=== PATIENT | female | born 1940 | race Caucasian/White ===

== ENCOUNTER → 2020-09-19 07:45 | Outpatient (CLI) | payer MEDICARE, MEDICAID, SELFPAY ==
[2020-09-19 13:54] LABS: Basophils % 0.2 % (0.1-2.0); Eosinophils # 0.5 K/mm3 (0.0-0.4); Eosinophils % 7.5 % (0.1-12.0); Hematocrit 27.4 % (37.0-47.0); Hemoglobin 8.3 g/dL (12.2-16.2); Lymphocytes # 1.6 K/mm3 (0.7-4.5); Lymphocytes % 26.5 % (10-50); Mean Corpuscular HGB Conc 30.2 g/dL (31.8-35.4); Mean Corpuscular Hemoglobin 24.5 pg (27.0-31.2); Mean Corpuscular Volume 81.3 fl (81-99); Mean Platelet Volume 8.1 fl (7.4-10.4); Monocytes # 0.6 K/mm3 (0.1-1.0); Monocytes % 9.1 % (1.7-9.3); Neutrophils # 3.5 K/mm3 (1.8-7.8); Neutrophils % 56.6 % (37.0-80.0); Platelet Count 378 K/mm3 (142-424); Red Blood Count 3.37 M/mm3 (4.20-5.40); Red Cell Distribution Width 19.9 % (11.5-17.5); White Blood Count 6.1 K/mm3 (4.8-10.8)
== END ==
PROVIDERS: Visit Provider Internal Medicine Adolescent Medicine
DX: I10 Essential (primary) hypertension (principal)
CPT/HCPCS: 36415; 85025

== ENCOUNTER → 2020-10-05 18:08 | Outpatient (CLI) | payer MEDICARE, MEDICAID, SELFPAY ==
[2020-10-05 18:10] LABS: Microscopic, Urine URINE MICROSCOPIC (MICROSCOPIC)
[2020-10-05 18:33] LABS: Appearance,Urine CLOUDY (Clear); Bilirubin,Urine Negative (Negative); Blood, Urine 2+ (Negative); Color,Urine YELLOW (Yellow); Glucose,Urine (UA) Negative (Negative); Ketones,Urine Negative (Negative); Leukocyte Esterase,Urine 2+ (Negative); Nitrate,Urine POSITIVE (Negative); PH,Urine 6.5 (5.0-8.5); Protein,Urine 1+ (Negative); Specific Gravity, Urine 1.015 (1.005-1.030); Urobilinogen,Urine 0.2 EU/dl (0.2)
[2020-10-05 19:03] LABS: Bacteria,Urine 3+ /lpf; RBC,Urine TNTC #/hpf (0-3); WBC,Urine TNTC #/hpf (0-3)
== END ==
PROVIDERS: Visit Provider Internal Medicine Adolescent Medicine
DX: R30.0 Dysuria (principal)
CPT/HCPCS: 81001; 87086; 87088; 87186

== ENCOUNTER → 2020-10-13 08:14 | Outpatient (CLI) | payer MEDICARE, MEDICAID, SELFPAY ==
[2020-10-13 13:55] LABS: Thyroid Stimulating Hormone 0.97 uIU/mL (0.465-4.68)
== END ==
PROVIDERS: Visit Provider Internal Medicine Adolescent Medicine
DX: E03.9 Hypothyroidism, unspecified (principal)
CPT/HCPCS: 36415; 84443

== ENCOUNTER → 2020-10-20 07:38 | Outpatient (CLI) | payer MEDICARE, MEDICAID, SELFPAY ==
[2020-10-20 13:46] LABS: Eosinophils # 0.4 K/mm3 (0.0-0.4); Lymphocytes # 1.5 K/mm3 (0.7-4.5); Red Blood Count 3.26 M/mm3 (4.20-5.40)
[2020-10-20 13:53] LABS: Basophils # 0.1 K/mm3 (0-0.2); Eosinophils % 6.3 % (0.1-12.0); Hematocrit 25.9 % (37.0-47.0); Hemoglobin 8.2 g/dL (12.2-16.2); Lymphocytes % 25.8 % (10-50); Mean Corpuscular HGB Conc 31.4 g/dL (31.8-35.4); Mean Corpuscular Volume 79.6 fl (81-99); Mean Platelet Volume 8.6 fl (7.4-10.4); Monocytes # 0.6 K/mm3 (0.1-1.0); Monocytes % 9.3 % (1.7-9.3); Neutrophils # 3.4 K/mm3 (1.8-7.8); Neutrophils % 57.6 % (37.0-80.0); Platelet Count 324 K/mm3 (142-424); Red Cell Distribution Width 18.5 % (11.5-17.5); White Blood Count 5.9 K/mm3 (4.8-10.8)
== END ==
PROVIDERS: Visit Provider Internal Medicine Adolescent Medicine
DX: D64.9 Anemia, unspecified (principal)
CPT/HCPCS: 36415; 85025

== ENCOUNTER → 2020-11-13 15:35 | Outpatient (CLI) | payer MEDICARE, MEDICAID, SELFPAY ==
[2020-11-13 15:45] LABS: Microscopic, Urine URINE MICROSCOPIC (MICROSCOPIC)
[2020-11-13 15:48] LABS: Basophils % 0.2 % (0.1-2.0); Eosinophils # 0.3 K/mm3 (0.0-0.4); Eosinophils % 2.5 % (0.1-12.0); Hematocrit 29.3 % (37.0-47.0); Hemoglobin 9.1 g/dL (12.2-16.2); Lymphocytes # 1.4 K/mm3 (0.7-4.5); Lymphocytes % 13.7 % (10-50); Mean Corpuscular HGB Conc 31.1 g/dL (31.8-35.4); Mean Corpuscular Hemoglobin 24.5 pg (27.0-31.2); Mean Corpuscular Volume 78.9 fl (81-99); Mean Platelet Volume 8.1 fl (7.4-10.4); Monocytes # 0.8 K/mm3 (0.1-1.0); Monocytes % 7.3 % (1.7-9.3); Neutrophils # 7.9 K/mm3 (1.8-7.8); Neutrophils % 76.4 % (37.0-80.0); Platelet Count 410 K/mm3 (142-424); Red Blood Count 3.72 M/mm3 (4.20-5.40); Red Cell Distribution Width 19.1 % (11.5-17.5); White Blood Count 10.3 K/mm3 (4.8-10.8)
[2020-11-13 15:59] LABS: Appearance,Urine TURBID (Clear); Bilirubin,Urine Negative (Negative); Blood, Urine 3+ (Negative); Color,Urine YELLOW (Yellow); Glucose,Urine (UA) Negative (Negative); Ketones,Urine Negative (Negative); Leukocyte Esterase,Urine 3+ (Negative); Nitrate,Urine Negative (Negative); Protein,Urine 1+ (Negative); Specific Gravity, Urine 1.015 (1.005-1.030); Urobilinogen,Urine 0.2 EU/dl (0.2)
[2020-11-13 16:04] LABS: Chloride 99 mmol/L (98-107); Potassium 3.1 mmoL/L (3.5-5.1); Sodium 143 mmol/L (136-145)
[2020-11-13 16:06] LABS: WBC,Urine TNTC #/hpf (0-3)
[2020-11-13 16:07] LABS: Anion Gap 12.1 mEq/L (5-15); Blood Urea Nitrogen 44 mg/dl (7-17); Carbon Dioxide 35 mmol/L (22.0-30.0); Estimated Glomerular Filt Rate 29 ml/min (>60); GFR (African American) 35 ML/MIN (>60); Glucose 87 mg/dl (74-100)
[2020-11-13 16:11] LABS: Calcium 13.8 mg/dl (8.4-10.2)
[2020-11-14 16:07] LABS: 25-OH Vitamin D, Total 31.5 ng/mL (30-100)
== END ==
LOC: LAB.DROPOF 15:36 → HMH.JM 11-15 10:14
PROVIDERS: Nurse Practitioner Family; Visit Provider Internal Medicine Adolescent Medicine
DX: I10 Essential (primary) hypertension (principal); D50.8 Other iron deficiency anemias; E03.9 Hypothyroidism, unspecified; E55.9 Vitamin D deficiency, unspecified; R82.90 Unspecified abnormal findings in urine
CPT/HCPCS: 80048; 81001; 82306; 84443; 85025; 87086; 87088; 87186

== ENCOUNTER → 2020-11-14 14:17 | Outpatient (CLI) | payer MEDICARE, MEDICAID, SELFPAY ==
[2020-11-14 14:37] LABS: Chloride 105 mmol/L (98-107); Sodium 144 mmol/L (136-145)
[2020-11-14 14:40] LABS: Alanine Aminotransferase 24 U/L (12-78); Albumin Level 2.6 g/dl (3.5-5.0); Albumin/Globulin Ratio 0.7 (1.1-1.8); Alkaline Phosphatase 127 U/L (38-126); Anion Gap 9.9 mEq/L (5-15); Aspartate Amino Transferase 51 U/L (14-36); Bilirubin,Total 0.5 mg/dl (0.2-1.3); Blood Urea Nitrogen 40 mg/dl (7-17); Carbon Dioxide 32 mmol/L (22.0-30.0); Estimated Glomerular Filt Rate 29 ml/min (>60); GFR (African American) 35 ML/MIN (>60); Globulin 3.5 g/dL (1.3-3.2); Total Protein,Serum 6.1 g/dl (6.3-8.2)
[2020-11-14 14:41] LABS: Glucose 95 mg/dl (74-100)
[2020-11-14 14:46] LABS: Calcium 12.9 mg/dl (8.4-10.2); Potassium 2.9 mmoL/L (3.5-5.1)
== END ==
PROVIDERS: Visit Provider Internal Medicine Adolescent Medicine
DX: E87.6 Hypokalemia (principal)
CPT/HCPCS: 80053

== ENCOUNTER → 2020-11-16 17:43 | Outpatient (CLI) | payer MEDICARE, MEDICAID, SELFPAY ==
[2020-11-16 19:16] LABS: Basophils % 0.2 % (0.1-2.0); Eosinophils # 0.1 K/mm3 (0.0-0.4); Eosinophils % 0.7 % (0.1-12.0); Hematocrit 28.6 % (37.0-47.0); Hemoglobin 8.6 g/dL (12.2-16.2); Lymphocytes # 1.7 K/mm3 (0.7-4.5); Lymphocytes % 16.7 % (10-50); Mean Corpuscular HGB Conc 30.2 g/dL (31.8-35.4); Mean Corpuscular Hemoglobin 24.4 pg (27.0-31.2); Mean Platelet Volume 8.6 fl (7.4-10.4); Monocytes # 0.7 K/mm3 (0.1-1.0); Monocytes % 7.1 % (1.7-9.3); Neutrophils # 7.7 K/mm3 (1.8-7.8); Neutrophils % 75.3 % (37.0-80.0); Platelet Count 376 K/mm3 (142-424); Red Blood Count 3.53 M/mm3 (4.20-5.40); Red Cell Distribution Width 19.1 % (11.5-17.5); White Blood Count 10.2 K/mm3 (4.8-10.8)
[2020-11-16 19:42] LABS: Chloride 107 mmol/L (98-107); Sodium 148 mmol/L (136-145)
[2020-11-16 19:45] LABS: Alanine Aminotransferase 26 U/L (12-78); Albumin Level 2.8 g/dl (3.5-5.0); Albumin/Globulin Ratio 0.7 (1.1-1.8); Alkaline Phosphatase 137 U/L (38-126); Aspartate Amino Transferase 34 U/L (14-36); Bilirubin,Total 0.4 mg/dl (0.2-1.3); Blood Urea Nitrogen 44 mg/dl (7-17); Carbon Dioxide 31 mmol/L (22.0-30.0); Estimated Glomerular Filt Rate 25 ml/min (>60); GFR (African American) 31 ML/MIN (>60); Globulin 3.8 g/dL (1.3-3.2); Glucose 87 mg/dl (74-100); Total Protein,Serum 6.6 g/dl (6.3-8.2)
[2020-11-16 20:14] LABS: Calcium 13.3 mg/dl (8.4-10.2)
== END ==
PROVIDERS: Visit Provider Internal Medicine Adolescent Medicine
DX: R79.89 Other specified abnormal findings of blood chemistry (principal)
CPT/HCPCS: 80053; 85025

== ENCOUNTER → 2020-11-19 12:32 | Outpatient (CLI) | payer MEDICARE, MEDICAID, SELFPAY ==
[2020-11-19 13:21] LABS: Chloride 114 mmol/L (98-107); Potassium 3.1 mmoL/L (3.5-5.1)
[2020-11-19 13:24] LABS: Alanine Aminotransferase 41 U/L (12-78); Albumin Level 2.5 g/dl (3.5-5.0); Albumin/Globulin Ratio 0.7 (1.1-1.8); Alkaline Phosphatase 138 U/L (38-126); Anion Gap 11.1 mEq/L (5-15); Aspartate Amino Transferase 117 U/L (14-36); Bilirubin,Total 0.6 mg/dl (0.2-1.3); Blood Urea Nitrogen 40 mg/dl (7-17); Carbon Dioxide 29 mmol/L (22.0-30.0); Estimated Glomerular Filt Rate 24 ml/min (>60); GFR (African American) 29 ML/MIN (>60); Globulin 3.6 g/dL (1.3-3.2); Glucose 87 mg/dl (74-100); Total Protein,Serum 6.1 g/dl (6.3-8.2)
[2020-11-19 14:50] LABS: Calcium 12.5 mg/dl (8.4-10.2); Sodium 151 mmol/L (136-145)
== END ==
PROVIDERS: Visit Provider Internal Medicine Adolescent Medicine
DX: J18.9 Pneumonia, unspecified organism (principal)
CPT/HCPCS: 80053

== ENCOUNTER 2020-11-19 16:20 | Inpatient (IN) | payer MEDICARE, MEDICAID, SELFPAY ==
[2020-11-19] VITALS (8 sets, daily range): BP systolic 152–199; BP diastolic 13–103; PULSE 100–116; RESP 22–30; TEMP 36.9–38.1; O2SAT 91–99; BMI 24.4
--- NOTE | 2020-11-19 16:30 | XR_ITS ---
PROCEDURE INFORMATION: Exam: XR Chest Exam date and time: 11/19/2020 4:30 PM Age: 80 years old Clinical indication: Fever; Prior surgery; Surgery type: Loop recorder TECHNIQUE: Imaging protocol: XR of the chest. Views: 1 view. COMPARISON: CT ABDOMEN PELVIS WO CON 11/19/2020 4:48 PM FINDINGS: Tubes, catheters and devices: Devices project over the heart. Lungs: Right apical opacities vague. Left basilar opacity is mild. Pleural spaces: Unremarkable. No pleural effusion. No pneumothorax. Heart/Mediastinum: Unremarkable. No cardiomegaly. Diaphragm: Left hemidiaphragm elevation noted. Bones/joints: Moderate bilateral shoulder arthritis. Organs: Calcifications project over the left upper quadrant compatible with renal stone seen on comparison CT. IMPRESSION: 1. Left basilar opacity most compatible with atelectasis, but an early infiltrate is possible. 2. Right apical opacity is nonspecific. Infection and tumor are possible. Follow-up PA and lateral could be performed for low clinical suspicion, or CT for high suspicion.
--- NOTE | 2020-11-19 16:31 | CT_ITS ---
PROCEDURE INFORMATION: Exam: CT Abdomen And Pelvis Without Contrast Exam date and time: 11/19/2020 4:31 PM Age: 80 years old Clinical indication: Abdominal tenderness TECHNIQUE: Imaging protocol: Computed tomography of the abdomen and pelvis without contrast. Radiation optimization: All CT scans at this facility use at least one of these dose optimization techniques: automated exposure control; mA and/or kV adjustment per patient size (includes targeted exams where dose is matched to clinical indication); or iterative reconstruction. COMPARISON: No relevant prior studies available. FINDINGS: Lungs: Mild bibasilar atelectasis. Heart: Postsurgical changes seen in heart. Heart appears mildly enlarged. Liver: Normal. No mass. Gallbladder and bile ducts: Normal. No calcified stones. No ductal dilation. Pancreas: Normal. No ductal dilation. Spleen: Normal. No splenomegaly. Adrenal glands: Normal. No mass. Kidneys and ureters: No stones in the right kidney. No hydronephrosis or hydroureter on the right. On the left, there is a large nonobstructing calyceal stone measuring about 16 x 15 mm toward the upper pole. Additional nonobstructing calyceal stones are seen. There is also a 22 mm stone in the left renal pelvis. No left hydronephrosis. No left ureteral stones. Stomach and bowel: A 10 cm rectal stool ball is noted. Appendix: No evidence of appendicitis. Intraperitoneal space: Unremarkable. No free air. No significant fluid collection. Vasculature: Unremarkable. No abdominal aortic aneurysm. Lymph nodes: Unremarkable. No enlarged lymph nodes. Urinary bladder: Unremarkable as visualized. Reproductive: The uterus is bulky and contains at least 1 calcified mass. Changes are most likely due to fibroids, but further characterization with ultrasound is suggested as adnexal lesion cannot be excluded on this study. Bones/joints: Unremarkable. No acute fracture. Soft tissues: Air in the right subcutaneous buttock tissues may be due to injection. Clinical correlation recommended. Other findings: Motion limits exam. IMPRESSION: 1. A 10 cm rectal stool ball is present likely due to fecal retention. This could be the cause of the patient's symptoms. 2. The uterus is enlarged and bulky with probable fibroids. An adnexal mass cannot be excluded on this study. Recommend correlation with recent pelvic ultrasound. 3. Indeterminate right greater than left adrenal nodularity. Comparison with remote priors if available is recommended as well as correlation for any personal history of cancer. Otherwise, adrenal protocol MRI or CT could be performed. 4. Cholelithiasis without CT evidence of cholecystitis.
--- NOTE | 2020-11-19 16:31 | CT_ITS ---
PROCEDURE INFORMATION: Exam: CT Head Without Contrast Exam date and time: 11/19/2020 4:31 PM Age: 80 years old Clinical indication: Altered mental status/memory loss; Prior surgery; Additional info: AMS TECHNIQUE: Imaging protocol: Computed tomography of the head without contrast. Radiation optimization: All CT scans at this facility use at least one of these dose optimization techniques: automated exposure control; mA and/or kV adjustment per patient size (includes targeted exams where dose is matched to clinical indication); or iterative reconstruction. COMPARISON: No relevant prior studies available. FINDINGS: Brain: Chronic encephalomalacia in the right cerebellum. There is an extra-axial mass likely arising from the meninges at the skull base anterolateral to brainstem, see axial series 2, images 17 -20, correlate for recurrent meningioma versus other extra-axial neoplasm or surgical change. This measures approximately 2.5 x 1.3 cm on series 2, image 19, this causes no compression of the brainstem. There is prominent generalized cerebral cortical atrophy/volume loss, which appears greater in the right hemisphere. There are some areas of chronic appearing cortical encephalomalacia at the right parietal convexity, likely old infarcts, and extensive white matter disease in both hemispheres, right greater than left. No acute intracranial hemorrhage. No brain edema/swelling. Cerebral ventricles: Ventriculomegaly; moderately dilated right lateral ventricle, probably ex vacuo change due to right hemisphere encephalomalacia and atrophy. Mildly dilated left lateral ventricle. No significant hydrocephalus. Paranasal sinuses: There is mild right ethmoid sinus mucosal thickening, and there is some fluid within the posterior right ethmoid sinus with air-fluid level series 3 images 19-20. There are some tiny mucous retention cysts or polyps in the maxillary sinuses of a few mm. Mastoid air cells: There are some opacified right mastoid air cells, which may be chronic postop change, versus active mastoiditis. No prior studies are available to compare. Left mastoid is unremarkable. Orbital cavity: No acute findings in the orbits, as visualized. Correlate for previous lens replacement surgery. Vasculature: Some calcified atherosclerotic plaques in the intracranial carotid arteries. Bones/joints: Right occipital craniotomy. No acute skull fracture. No lytic lesions. Soft tissues: There are no soft tissue masses or fluid collections. Surgical clips at the right occipital craniotomy. IMPRESSION: 1. There is an extra-axial solid-appearing mass of 2.5 x 1.3 cm in the posterior fossa on the right, located anterolateral to the brainstem, which is suspicious for residual or recurrent meningioma, correlate with the previous surgical history. No prior images or reports are available to compare. This causes no compression of the brainstem. 2. Right occipital craniotomy, encephalomalacia in the right occipital lobe. 3. No acute intracranial hemorrhage. 4. No signs of acute infarct. 5. Chronic ischemic changes in the right parietal convexity cortex, extensive white matter disease in both hemispheres right greater than left is likely chronic microvascular ischemic change. 6. Likely [id number] sinusitis, some fluid in the posterior right ethmoid sinus. 7. Right mastoid opacities may be chronic postsurgical change, versus mastoiditis. 8. Additional nonemergency and chronic findings as above.
--- NOTE | 2020-11-19 16:33 | HMH.EDGENADL ---
ED Disposition Clinical Impression: Healthcare-associated pneumonia, Hypernatremia, Hypokalemia, Hypercalcemia Altered mental status Qualifiers: Altered mental status type: somnolence Qualified Code(s): R40.0 - Somnolence Chronic kidney disease Qualifiers: Chronic kidney disease stage: unspecified stage Qualified Code(s): N18.9 - Chronic kidney disease, unspecified Anemia Qualifiers: Anemia type: unspecified type Qualified Code(s): D64.9 - Anemia, unspecified Sepsis Qualifiers: Sepsis type: sepsis due to unspecified organism Sepsis acute organ dysfunction status: without acute organ dysfunction Qualified Code(s): A41.9 - Sepsis, unspecified organism Disposition: Admitted As Inpatient Condition on Discharge: Serious - Critical Care Critical Care Time: No Attestation: On , the high probability of a clinically significant, sudden or life threatening deterioration of the following system(s) required my full and direct attention, intervention and personal management. The time I documented below is in addition to time spent performing reported procedures but includes the following listed in this critical care notation. Medical Decision Making - Elvis Inquiry Pt receiving controlled substance: No Vital Signs: 11/19/20 16:20 11/19/20 17:30 11/19/20 17:45 Temperature 100.6 F H Temperature Source Rectal Pulse Rate 112 H 105 H Pulse Rate [Left] 104 H Respiratory Rate 30 H 22 22 Blood Pressure 183/84 H 173/74 H Blood Pressure [Right Arm] 193/97 H Blood Pressure Mean [Right Arm] 129 Blood Pressure Source [Right Arm] Automatic Cuff 02 Sat by Pulse Oximetry 99 98 Oxygen Delivery Method Room Air - Lab Data Lab Results 11/19/20 16:25: WBC 11.9 H, RBC 3.32 L, Hgb 8.2 L, Hct 27.8 L, MCV 83.8, MCH 24.7 L, MCHC 29.4 L, RDW 19.2 H, Plt Count 320, MPV 8.2, Neut % (Auto) 79.9, Lymph % (Auto) 13.0, [place] % (Auto) 6.0, Eos % (Auto) 0.1, Baso % (Auto) 0.9, Neut # (Auto) 9.5 H, Lymph # (Auto) 1.6, [place] # (Auto) 0.7, Eos # (Auto) 0.0, Baso # (Auto) 0.1 11/19/20 16:25: Sodium 153 H*, Potassium 2.7 L*, Chloride 114 H, Carbon Dioxide 30, Anion Gap 11.7, BUN 38 H, Creatinine 2.20 H, Estimated Creat Clear 26, Estimated GFR 21 L, Est GFR ( Amer) 26 L, Glucose 95, Calcium 12.8 H*, Total Bilirubin 0.7, AST 115 H, ALT 47, Alkaline Phosphatase 139 H, Total Protein 7.1, Albumin 3.0 L D, Globulin 4.1 H, Albumin/Globulin Ratio 0.7 L 11/19/20 16:25: Lactate 1.0 11/19/20 16:25: SARS-CoV-2 (PCR) Not detected, Influenza A Untype (PCR) Not detected, Influenza Type B (PCR) Not detected 11/19/20 16:25: PTH Intact 43.6 11/19/20 17:18: Urine Color Yellow, Urine Appearance Clear, Urine pH 6.5, Ur Specific [place] 1.015, Urine Protein 1+, Urine Glucose (UA) Negative, Urine Ketones Negative, Urine Blood 1+, Urine Nitrate Negative, Urine Bilirubin Negative, Urine Urobilinogen 0.2, Ur Leukocyte Esterase Negative, Urine RBC 3-5, Urine WBC 3-5, Ur Squamous Epith Cells 3-5, Urine Bacteria None Result diagrams: 11/19/20 16:25 11/19/20 16:25 Orders (Tests/Meds): ED MEDICATIONS Generic Name Dose Route Start Last Admin Trade Name Freq PRN Reason Stop Dose Admin Levofloxacin/Dextrose 750 mg in 150 mls @ 100 mls/hr 11/19/20 18:30 Levofloxacin 750mg/150ml Premix IV 12/03/20 18:29 Q24H ASHA Cefepime HCl 2 gm/ Sodium 100 mls @ 100 mls/hr 11/19/20 18:30 11/19/20 18:47 Chloride IV 12/03/20 18:29 100 mls/hr Q12H ASHA Administration Potassium Chloride/Water 20 meq 11/19/20 17:02 Potassium Chloride 20meq/100ml Ivpb IV 11/19/20 17:03 ONCE ONE Discontinued Medications Generic Name Dose Route Start Last Admin Trade Name Freq PRN Reason Stop Dose Admin Acetaminophen 650 mg 11/19/20 17:25 11/19/20 17:34 Acetaminophen 650mg Suppository RC 11/19/20 17:26 650 mg ONCE ONE Administration Sodium Chloride 1,000 ml 11/19/20 17:01 11/19/20 17:07 Sodium Chloride 0.9% 1000ml Bag IV 11/19/20 17:
[2020-11-19 16:40] LABS: Coronavirus 19, PCR Not Detected (NotDetected); Influenza A, PCR Not Detected (NotDetected); Influenza B, PCR Not Detected (NotDetected)
[2020-11-19 16:44] LABS: Basophils # 0.1 K/mm3 (0-0.2); Basophils % 0.9 % (0.1-2.0); Eosinophils % 0.1 % (0.1-12.0); Hematocrit 27.8 % (37.0-47.0); Hemoglobin 8.2 g/dL (12.2-16.2); Lymphocytes # 1.6 K/mm3 (0.7-4.5); Mean Corpuscular HGB Conc 29.4 g/dL (31.8-35.4); Mean Corpuscular Hemoglobin 24.7 pg (27.0-31.2); Mean Corpuscular Volume 83.8 fl (81-99); Mean Platelet Volume 8.2 fl (7.4-10.4); Monocytes # 0.7 K/mm3 (0.1-1.0); Neutrophils # 9.5 K/mm3 (1.8-7.8); Neutrophils % 79.9 % (37.0-80.0); Platelet Count 320 K/mm3 (142-424); Red Blood Count 3.32 M/mm3 (4.20-5.40); Red Cell Distribution Width 19.2 % (11.5-17.5); White Blood Count 11.9 K/mm3 (4.8-10.8)
[2020-11-19 16:50] LABS: Alanine Aminotransferase 47 U/L (12-78); Albumin/Globulin Ratio 0.7 (1.1-1.8); Alkaline Phosphatase 139 U/L (38-126); Anion Gap 11.7 mEq/L (5-15); Aspartate Amino Transferase 115 U/L (14-36); Bilirubin,Total 0.7 mg/dl (0.2-1.3); Blood Urea Nitrogen 38 mg/dl (7-17); Carbon Dioxide 30 mmol/L (22.0-30.0); Chloride 114 mmol/L (98-107); Creatinine Clearance Estimated 26 mL/min (50-200); Estimated Glomerular Filt Rate 21 ml/min (>60); GFR (African American) 26 ML/MIN (>60); Globulin 4.1 g/dL (1.3-3.2); Glucose 95 mg/dl (74-100); Total Protein,Serum 7.1 g/dl (6.3-8.2)
[2020-11-19 16:57] LABS: Calcium 12.8 mg/dl (8.4-10.2); Potassium 2.7 mmoL/L (3.5-5.1); Sodium 153 mmol/L (136-145)
--- NOTE | 2020-11-19 17:00 | ECG_ITS ---
APPROVED REPORT Exam: Resting ECG HR:101 bpm ECG Measurements Heart Rate 101 AXES QRSd 78 QRS 2 QT 326 T -89 QTc 422 Conclusion Atrial fibrillation with rapid ventricular response Minimal voltage criteria for LVH, may be normal variant ST & T wave abnormality Abnormal ECG Electronically signed by : Dakota Vidal MD 11/20/2020 08:57:53
--- NOTE | 2020-11-19 17:08 | PC.NURSE ---
lab called with critical values NA 153 K 2.7 CA 12.8 MD aware.
[2020-11-19 17:20] LABS: Intact Parathyroid Hormone 43.6 pg/mL (7.5-53.5)
[2020-11-19 17:22] LABS: Microscopic, Urine URINE MICROSCOPIC (MICROSCOPIC)
[2020-11-19 17:28] LABS: Appearance,Urine CLEAR (Clear); Bilirubin,Urine Negative (Negative); Blood, Urine 1+ (Negative); Color,Urine YELLOW (Yellow); Glucose,Urine (UA) Negative (Negative); Ketones,Urine Negative (Negative); Leukocyte Esterase,Urine Negative (Negative); Nitrate,Urine Negative (Negative); PH,Urine 6.5 (5.0-8.5); Protein,Urine 1+ (Negative); Specific Gravity, Urine 1.015 (1.005-1.030); Urobilinogen,Urine 0.2 EU/dl (0.2)
--- NOTE | 2020-11-19 17:45 | PC.NURSE ---
patients daughter called, Jeremy SALAZAR) and I updated her on patient condition and plan of care.
--- NOTE | 2020-11-19 18:10 | PC.NURSE ---
Dr Min speaking to Dr Kurtz
--- NOTE | 2020-11-19 19:26 | PC.NURSE ---
called Kwan CHIN and updated RN on patient condition and that patient is going to be getting admitted.
--- NOTE | 2020-11-19 20:21 | PC.NURSE ---
patient up to floor via stretcher.
[2020-11-20] VITALS (7 sets, daily range): BP systolic 158–197; BP diastolic 96–98; PULSE 110–125; RESP 20–28; TEMP 37.7–39.1; O2SAT 90–95; BMI 25.4
[2020-11-20 07:39] LABS: Basophils % 0.1 % (0.1-2.0); Eosinophils % 0.3 % (0.1-12.0); Hematocrit 25.5 % (37.0-47.0); Hemoglobin 7.8 g/dL (12.2-16.2); Lymphocytes # 1.4 K/mm3 (0.7-4.5); Lymphocytes % 11.2 % (10-50); Mean Corpuscular HGB Conc 30.5 g/dL (31.8-35.4); Mean Corpuscular Hemoglobin 25.7 pg (27.0-31.2); Mean Corpuscular Volume 84.1 fl (81-99); Mean Platelet Volume 9.4 fl (7.4-10.4); Monocytes # 0.7 K/mm3 (0.1-1.0); Monocytes % 5.1 % (1.7-9.3); Neutrophils # 10.6 K/mm3 (1.8-7.8); Neutrophils % 83.3 % (37.0-80.0); Platelet Count 274 K/mm3 (142-424); Red Blood Count 3.03 M/mm3 (4.20-5.40); Red Cell Distribution Width 19.2 % (11.5-17.5); White Blood Count 12.7 K/mm3 (4.8-10.8)
[2020-11-20 07:43] LABS: Chloride 119 mmol/L (98-107); Potassium 3.2 mmoL/L (3.5-5.1)
[2020-11-20 07:46] LABS: Anion Gap 12.2 mEq/L (5-15); Blood Urea Nitrogen 38 mg/dl (7-17); Carbon Dioxide 26 mmol/L (22.0-30.0); Creatinine Clearance Estimated 22 mL/min (50-200); Estimated Glomerular Filt Rate 21 ml/min (>60); GFR (African American) 26 ML/MIN (>60); Glucose 97 mg/dl (74-100)
[2020-11-20 08:03] LABS: Sodium 154 mmol/L (136-145)
[2020-11-20 08:04] LABS: Calcium 12.5 mg/dl (8.4-10.2)
--- NOTE | 2020-11-20 08:48 | HMH.HP ---
*Admission Date: 11/19/20 *Chief complaint: Fever, mental status changes *History of present illness: 80-year-old white female, resident of [facility], who over the past couple of weeks has struggled with urinary tract infections, evidence of nursing acquired pneumonia and significant hypercalcemia with kidney injury. We have treated her at the long term with broad-spectrum IV antibiotics and IV fluids, work-up for hypercalcemia has included IV fluid administrations and PTH measurement-this is pending. Patient's status declined over the past 48 hours with increasingly obtunded status and fever, brought to the emergency department. Found to have evidence of nursing acquired pneumonia, had failed Invanz therapy. Had anemia, evidence of acute kidney injury and ongoing hypercalcemia and admitted to hospital for further therapy and evaluation. [facility] History I have reviewed the patient's past medical history: Yes Medical History: Reports:: Atrial Fibrillation, Hyperlipidemia, Hypertension Denies:: Diabetes Mellitus Type 1, Diabetes Mellitus Type 2 *Have you ever received a pneumonia vaccine?: No *Have you received a flu vaccine this season?: No Other Medical History: Reports: Arthritis, Hypothyroidism Laterality Cases: Left: Arthroscopy Hip - *Social History Smoking Status: Current some day smoker # Packs/Day (cigarettes): 1 Alcohol Intake: never *Occupational Status:: retired, disabled Housing: long term *Travel in the last 8 weeks: None Family Hx:: Unable to obtain Review of Systems - Review of Systems Review of systems:: pertinent systems reviewed and negative unless documented below Meds Home Medications Medication Instructions Recorded Confirmed Type Cholecalciferol (Vitamin D3) 50 mcg PO DAILY 11/19/20 11/20/20 History [Vitamin D3] Duloxetine HCl 60 mg PO DAILY 11/19/20 11/20/20 History Ertapenem Sodium [Invanz 1gm Vial] 1 gm PO DAILY 11/19/20 11/20/20 History Ezetimibe/Simvastatin 10 mg PO DAILY 11/19/20 11/20/20 History [Ezetimibe-Simvastatin 10-10 mg] Levothyroxine Sodium 125 mcg PO DAILY 11/19/20 11/20/20 History [Levothyroxine] Melatonin 6 mg PO HS 11/19/20 11/20/20 History Metoprolol Succinate [Metoprolol 50 mg PO DAILY 11/19/20 11/20/20 History Succinate 50mg Tablet*] Potassium Chloride 60 meq PO DAILY 11/19/20 11/20/20 History Tiotropium [place] [Spiriva 2 puff PO DAILY 11/19/20 11/19/20 History Respimat] Allergies Allergy/AdvReac Type Severity Reaction Status Date / Time No Known Allergies Allergy Verified 11/19/20 16:51 Exam Vital signs and Labs for Last 24 Hours: Temp Pulse Resp BP Pulse Ox 102.3 F H 125 H 20 197/97 H 95 11/20/20 08:00 11/20/20 08:00 11/20/20 08:00 11/20/20 08:00 11/20/20 08:00 Laboratory Results - last 24 hr 11/19/20 16:25: WBC 11.9 H, RBC 3.32 L, Hgb 8.2 L, Hct 27.8 L, MCV 83.8, MCH 24.7 L, MCHC 29.4 L, RDW 19.2 H, Plt Count 320, MPV 8.2, Neut % (Auto) 79.9, Lymph % (Auto) 13.0, [place] % (Auto) 6.0, Eos % (Auto) 0.1, Baso % (Auto) 0.9, Neut # (Auto) 9.5 H, Lymph # (Auto) 1.6, [place] # (Auto) 0.7, Eos # (Auto) 0.0, Baso # (Auto) 0.1 11/19/20 16:25: Sodium 153 H*, Potassium 2.7 L*, Chloride 114 H, Carbon Dioxide 30, Anion Gap 11.7, BUN 38 H, Creatinine 2.20 H, Estimated Creat Clear 26, Estimated GFR 21 L, Est GFR ( Amer) 26 L, Glucose 95, Calcium 12.8 H*, Total Bilirubin 0.7, AST 115 H, ALT 47, Alkaline Phosphatase 139 H, Total Protein 7.1, Albumin 3.0 L D, Globulin 4.1 H, Albumin/Globulin Ratio 0.7 L 11/19/20 16:25: Lactate 1.0 11/19/20 16:25: SARS-CoV-2 (PCR) Not detected, Influenza A Untype (PCR) Not detected, Influenza Type B (PCR) Not detected 11/19/20 16:25: PTH Intact 43.6 11/19/20 17:18: Urine Color Yellow, Urine Appearance Clear, Urine pH 6.5, Ur Specific [place] 1.015, Urine Protein 1+, Urine Glucose (UA) Negative, Urine Ketones Negative, Urine Blood 1+, Urine Nitrate Negative, Urine Bilirubin Negative, Urine
--- NOTE | 2020-11-20 09:01 | PC.NURSE ---
0803- spoke to ashley in the lab. verified name, and room number. Na-[id number] and Ca-12.5 0821- notified MD Vidal during rounds. NNO @ this time
--- NOTE | 2020-11-20 12:21 | P.CONPHA_ITS ---
[facility] Pharmacy VTE Monitoring - Patient Demographics Admission date: 11/19/20 Report Date: 11/20/20 Time: 12:22 Allergies/Adverse Reactions: Patient Allergies No Known Allergies Allergy (Verified 11/19/20 16:51) Height: 1.63 m Weight: 67.727 kg Patient Problems: Current Active Problems Healthcare-associated pneumonia (Acute) Altered mental status (Acute) Hypernatremia (Acute) Hypokalemia (Acute) Hypercalcemia (Acute) Chronic kidney disease (Acute) Anemia (Acute) Sepsis (Acute) - VTE Risk Labs: VTE Related Lab Results Hgb 7.8 g/dL (12.2-16.2) L 11/20/20 07:31 Hct 25.5 % (37.0-47.0) L 11/20/20 07:31 Plt Count 274 K/mm3 (142-424) 11/20/20 07:31 BUN 38 mg/dl (7-17) H 11/20/20 07:31 Creatinine 2.20 mg/dl (0.52-1.04) H 11/20/20 07:31 Estimated Creat Clear 22 mL/min (50-200) 11/20/20 07:31 VTE Score: 5 VTE Risk Level: Low Risk - Prophylaxis VTE Prophylaxis Ordered?: Yes Types of VTE Prophylaxis: TEDS Knee High Location of Applied Device: Bilateral Lower Extremeties
--- NOTE | 2020-11-20 12:58 | HMH.PHAINT ---
MEDICATION RECONCILIATION COMPLETED ON PATIENT USING MAR FROM [facility]. -ARIAN PIKE, TALHAD
--- NOTE | 2020-11-20 15:53 | PC.NURSE ---
Addendum entered by Sindy Harper RN 11/20/20 17:56: Pt has been febrile majority of this shift, when PRN tylenol not able to give-blankets removed, ice packs applied axillary and in the groin area Original Note: Pt has been a q2h turn this shift, q2h and PRN oral care has been given provided to pt as well this shift. Family has remained at bedside this shift. Per MD Vidal, pt is terminally ill and end-of-life visitation policies may be taken into effect. Expiratory rhonchi heard bilaterally t/o per auscultation. Hypoactive bowel sounds in all 4 quads, pt did x1 medium, dark brown/black stool this shift after enema administration. Cardenas cath draining cloudy, light yellow urine. No other acute changes or complaints at this time, will continue to monitor.
[2020-11-21] VITALS: PULSE 112; RESP 24; O2SAT 91
--- NOTE | 2020-11-21 00:03 | PC.NURSE ---
1999- family at bedside refused vital sign assessment at this time.
[2020-11-21 03:53] VITALS: PULSE 118; RESP 16; TEMP 37.3; O2SAT 92
[2020-11-21 05:06] VITALS: BMI 24.6
--- NOTE | 2020-11-21 05:14 | PC.NURSE ---
Pt. t/r per family request, staff makes offer q2h. Pt. had one small, tarry bm this shift. FC draining bright yellow urine, sediment noted. Morphine administered x1, effectiveness noted. Resting in bed with eyes closed at this time.
[2020-11-21 08:00] VITALS: BP 197/99; PULSE 109; RESP 19; TEMP 37.1; O2SAT 92
[2020-11-21 08:23] LABS: Chloride 122 mmol/L (98-107)
[2020-11-21 08:24] LABS: Basophils % 0.1 % (0.1-2.0); Eosinophils % 0.1 % (0.1-12.0); Hematocrit 23.9 % (37.0-47.0); Lymphocytes # 1.3 K/mm3 (0.7-4.5); Lymphocytes % 11.7 % (10-50); Mean Corpuscular HGB Conc 29.3 g/dL (31.8-35.4); Mean Corpuscular Hemoglobin 25.3 pg (27.0-31.2); Mean Corpuscular Volume 86.3 fl (81-99); Mean Platelet Volume 9.5 fl (7.4-10.4); Monocytes # 0.6 K/mm3 (0.1-1.0); Monocytes % 5.1 % (1.7-9.3); Neutrophils # 8.9 K/mm3 (1.8-7.8); Platelet Count 253 K/mm3 (142-424); Red Blood Count 2.77 M/mm3 (4.20-5.40); Red Cell Distribution Width 19.8 % (11.5-17.5); White Blood Count 10.7 K/mm3 (4.8-10.8)
[2020-11-21 08:26] LABS: Anion Gap 11.7 mEq/L (5-15); Blood Urea Nitrogen 42 mg/dl (7-17); Carbon Dioxide 26 mmol/L (22.0-30.0); Creatinine Clearance Estimated 22 mL/min (50-200); Estimated Glomerular Filt Rate 23 ml/min (>60); GFR (African American) 27 ML/MIN (>60); Glucose 92 mg/dl (74-100)
[2020-11-21 08:38] LABS: Potassium 2.7 mmoL/L (3.5-5.1); Sodium 157 mmol/L (136-145)
--- NOTE | 2020-11-21 08:57 | P.PN_ITS ---
Internal Medicine - PN: Subj *Date: 11/21/20 *Time: 08:57 Interval history: Patient has received a couple of doses of morphine overnight for pain and some agitation. Her daughters who are at bedside report that she has been very peaceful over the last 3 or 4 hours and has gotten some rest. They have multiple questions about her worsening status. Exam Vital signs and Labs for Last 24 Hours: Temp Pulse Resp BP Pulse Ox 98.8 F 109 H 19 197/99 H 92 L 11/21/20 08:00 11/21/20 08:00 11/21/20 08:00 11/21/20 08:00 11/21/20 08:00 Laboratory Results - last 24 hr 11/21/20 07:55: WBC 10.7, RBC 2.77 L, Hgb 7.0 L, Hct 23.9 L, MCV 86.3, MCH 25.3 L, MCHC 29.3 L, RDW 19.8 H, Plt Count 253, MPV 9.5, Neut % (Auto) 83.0 H, Lymph % (Auto) 11.7, [place] % (Auto) 5.1, Eos % (Auto) 0.1, Baso % (Auto) 0.1, Neut # (Auto) 8.9 H, Lymph # (Auto) 1.3, [place] # (Auto) 0.6, Eos # (Auto) 0.0, Baso # (Auto) 0.0 11/21/20 07:55: Sodium 157 H*, Potassium 2.7 L*, Chloride 122 H, Carbon Dioxide 26, Anion Gap 11.7, BUN 42 H, Creatinine 2.10 H, Estimated Creat Clear 22, Estimated GFR 23 L, Est GFR ( Amer) 27 L, Glucose 92, Calcium 12.0 H I & O for Last 24 hours: Intake & Output 11/18/20 11/19/20 11/20/20 11/21/20 11:59 11:59 11:59 11:59 Intake Total 0 / 0 2908 / 2908 Output Total 1200 / 1200 1900 / 1900 Balance -1200 / -1200 1008 / 1008 Weight 149 lb 5 oz 144 lb 8 oz Narrative: Patient is obtunded. Poor air movement. Extremities are warm and well- perfused. Heart rate regular. Lungs have poor air movement some rhonchi noted. Abdomen soft. No masses. Pulses are diminished in the legs. However they are warm. No focal neurologic exam findings. Significant obtundation. Assessment and Plan (1) Altered mental status Status: Acute Qualifiers: Altered mental status type: somnolence Qualified Code(s): R40.0 - Somnolence Category: Medical Code(s): R41.82 - Altered mental status, unspecified (2) Anemia Status: Acute Qualifiers: Anemia type: unspecified type Qualified Code(s): D64.9 - Anemia, unspecified Category: Medical Code(s): D64.9 - Anemia, unspecified (3) Healthcare-associated pneumonia Status: Acute Category: Medical Code(s): J18.9 - Pneumonia, unspecified organism (4) Hypercalcemia Status: Acute Category: Medical Code(s): E83.52 - Hypercalcemia (5) Hypernatremia Status: Acute Category: Medical Code(s): E87.0 - Hyperosmolality and hypernatremia - Assessment and plan all Dx Assessment and Plan for all problems:: Labs noted, significant worsening of anemia, based on my exam yesterday I believe patient has significant GI bleeding episodes. Hypercalcemia and electrolyte disturbances noted. Given chest x-ray findings, and her history of heavy smoking I am suspicious that there is an occult pulmonary malignancy that has caused her significant decline in hypercalcemia in the face of a normal PTH. Had a long discussion with her daughters today. They reaffirmed her DNR status. We discussed hospice care, they will be evaluated today. No indication for transfusion or other aggressive interventions today given her terminal status.
--- NOTE | 2020-11-21 10:05 | DIET.NUTRFU ---
Per Kwan Moise pt is on pureed diet with thin liquids. Family states she has been having trouble even with pureed foods. Also stated she does not do well with thickened liquids. Please assist all meals and observe aspiration precautions. Daily ensure on order, will monitor to alter as indicated.
[2020-11-21 10:07] VITALS: BMI 24.8
--- NOTE | 2020-11-21 10:41 | SW/DCPLANNER ---
Addendum entered by Yuly Allen 11/22/20 09:56: CALLED HOSPICE [facility] THIS MORNING AND THE EQUIPMENT WILL BE DELIVERED AROUND NOON TODAY AND PATIENT CAN THEN DISCHARGE TO HOME... FAMILY WAS ALSO NOTIFIED.. Addendum entered by Yuly Allen 11/22/20 06:32: HOSPICE CAME TO SEE PATIENT AND FAMILY WISHES TO TAKE HER HOME AND NOT TAKE HER BACK TO [facility].. EQUIPMENT IS GOING TO BE DELIVERED AND PATIENT WILL GO HOME WITH DAUGHTER WHO LIVES IN [place].. WILL COLLABORATE WITH THIS MORNING AND GET PATIENT TO THE [facility]..SHE WILL BE FOLLOWED BY [facility].. Original Note: SENT REFERRAL TO [facility] TO COME UP AND SPEAK WITH PATIENTS FAMILY REGARDING THE SERVICES HOSPICE CAN PROVIDE AT THE CORRECTION... I CALLED AND SPOKE WITH NELLY AT HOSPICE AND SHE STATED SOMEONE WILL BE UP TO SPEAK WITH FAMILY TODAY... DISCHARGE IS UNCERTAIN BUT ONCE A PLAN IS ESTABLISHED SHE MAY DISCHARGE BACK TO HER CORRECTION BED...
[2020-11-21 12:07] VITALS: BP 183/94; PULSE 106; RESP 20; TEMP 37.4; O2SAT 90
[2020-11-21 15:18] VITALS: BP 168/104; PULSE 116; RESP 22; TEMP 36.7; O2SAT 87
--- NOTE | 2020-11-21 15:28 | PC.NURSE ---
HOSPICE HAS SEEN THE PT TODAY. FAMILY REMAINS AT BEDSIDE. 2LNC IN PLACE FOR COMFORT. Q2 TURNS T/O SHIFT. DECREASED PO INTAKE. PT HAS NOT BEEN ABLE TO TAKE PO MEDS. BREWER CATH IN PLACE.
[2020-11-21 20:00] VITALS: BP 153/75; PULSE 120; RESP 20; TEMP 36.7; O2SAT 97
--- NOTE | 2020-11-22 00:09 | HMH.DCSUM ---
General - General Admission date:: 11/19/20 Discharge date: 11/22/20 HPI HPI: 80-year-old white female, resident of [facility], who over the past couple of weeks has struggled with urinary tract infections, evidence of nursing acquired pneumonia and significant hypercalcemia with kidney injury. We have treated her at the detention with broad-spectrum IV antibiotics and IV fluids, work-up for hypercalcemia has included IV fluid administrations and PTH measurement-this is pending. Patient's status declined over the past 48 hours with increasingly obtunded status and fever, brought to the emergency department. Found to have evidence of nursing acquired pneumonia, had failed Invanz therapy. Had anemia, evidence of acute kidney injury and ongoing hypercalcemia and admitted to hospital for further therapy and evaluation. Hospital Course Hospital Course: 80-year-old female admitted with sepsis with concern for pneumonia, hypercalcemia, hypokalemia, hypernatremia. Extensive history of smoking. 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 Extensive discussions with family during hospitalization about goals of care. Desire to transition to hospice care given advanced age and severity of metabolic disturbances and acute illness. Patient has been accepted by hospice of [facility]. Plan for discharge today in the care of family. Mild agitation today. We will discontinue Cardenas catheter as it appears to induce more discomfort then provide benefit. Examined on day of discharge. Objective Vital signs: Temp Pulse Resp BP Pulse Ox 98.0 F 120 H 20 153/75 H 97 11/21/20 20:00 11/21/20 20:00 11/21/20 20:00 11/21/20 20:00 11/21/20 20:00 mild distress, chronically ill appearing, somnolent - *Routine HEENT Exam Head: Present: normocephalic Eye: Present: EOMI, PERRL ENT: Present: mucous membranes moist - *Routine Neck Exam Present: supple - *Routine Respiratory Exam Present: rhonchi, crackles, distant breath sounds - *Routine Cardiovascular Exam Present: RRR - *Routine Abdominal Exam Present: soft, normoactive bowel sounds. Absent: tenderness - *Routine Extremities Exam Absent: cyanosis, clubbing, edema - *Routine Skin Exam Present: warm. Absent: rash Results Labs on day of discharge: Labs from last 24 hours 11/21/20 11/21/20 07:55 07:55 WBC 10.7 RBC 2.77 L Hgb 7.0 L Hct 23.9 L MCV 86.3 MCH 25.3 L MCHC 29.3 L RDW 19.8 H Plt Count 253 MPV 9.5 Neut % (Auto) 83.0 H Lymph % (Auto) 11.7 George % (Auto) 5.1 Eos % (Auto) 0.1 Baso % (Auto) 0.1 Neut # (Auto) 8.9 H Lymph # (Auto) 1.3 George # (Auto) 0.6 Eos # (Auto) 0.0 Baso # (Auto) 0.0 Sodium 157 H* Potassium 2.7 L* Chloride 122 H Carbon Dioxide 26 Anion Gap 11.7 BUN 42 H Creatinine 2.10 H Estimated Creat Clear 22 Estimated GFR 23 L Est GFR ( Amer) 27 L Glucose 92 Calcium 12.0 H Preliminary micro results at discharge 11/19/20 16:25 Blood Culture - Preliminary Blood NO GROWTH AFTER 48 HOURS 11/19/20 16:25 Blood Culture - Preliminary Blood NO GROWTH AFTER 48 HOURS DS: Diagnosis - Discharge Diagnosis (1) Sepsis Status: Acute (2) Altered mental status Status: Acute (3) Anemia Status: Acute (4) Healthcare-associated pneumonia Status: Acute (5) Hypercalcemia Status: Acute (6) Hypernatremia Status: Acute Discharge Plan - Patient Discharge Instructions ACTIVITY: Bed rest, Other DIET: continue same diet Patient Instructions: Anemia, DI for Pneumonia -- Adult, Chronic Kidney Disease, DI for Hypokalemia, DI for Hypercalcemia, DI for Hypernatremia, DI for Sepsis -- Adult, DI for Altered Mental Status, Preventing the Spread of Coronavirus Discharge Instructions - Follow up Plan Di
--- NOTE | 2020-11-22 03:43 | PC.NURSE ---
REPORT RECEIVED FROM MICHELLE GALVEZ AT 0215. PT HAS BEEN SLEEPING SOUNDLY ON R SIDE SINCE THAT TIME. PT'S DAUGHTER REMAINS AT BEDSIDE. RESP EVEN AND UNLABORED WITH 2L/NC IN PLACE. NO TURNS WHILE PT IS RESTING WELL PER DAUGHTER'S REQUEST. WILL CONTINUE TO MONITOR.
--- NOTE | 2020-11-22 04:23 | PC.NURSE ---
FAMILY REFUSED VITAL SIGN ASSESSMENT AT THIS TIME. PT RESTING COMFORTABLY.
[2020-11-22 05:03] VITALS: RESP 16
--- NOTE | 2020-11-22 05:36 | PC.NURSE ---
PT REPOSITIONED ON SIDE AND PILLOW PLACED BETWEEN KNEES. FAMILY MEMBER AT BEDSIDE. PT APPEARS UNCOMFORTABLE AND STATES I'M HURTING , MEDICATED PER EMAR AND REASSESSED. WILL CONTINUE TO MONITOR.
[2020-11-22 07:35] VITALS: RESP 20
--- NOTE | 2020-11-22 07:35 | PC.NURSE ---
Patient lying in bed this am. On comfort care. Speech is garbled. Voices no pain. Family at bedside. No open sores noted. Scattered bruising throughout body noted. No distress was noted. martinez in place. iv infusing. family refusing to give patient oral meds (patient can not take this) but wants her to have antibiotic.
[2020-11-22 08:00] VITALS: BP 154/41; PULSE 121; RESP 20; TEMP 36.9; O2SAT 98
[2020-11-22 09:42] VITALS: RESP 18
--- NOTE | 2020-11-22 12:50 | PC.NURSE ---
WENT TO INDUCE SPUTUM BUT PT IS GOING HOME HOSPICE. FAMILY AT BEDSIDE.
[2020-11-22 14:32] VITALS: RESP 22
--- NOTE | 2020-11-22 14:52 | PC.NURSE ---
pt resting in the bed at this time. family at bedside. waiting for ems to arrive. meds given per mar and iv removed. pt tolerated well
== END 2020-11-22 16:15 | disposition hospice, home (50) | DRG 871 ==
LOC: ER 18:25 → 2ND 18:41
PROVIDERS: Nurse Practitioner Family; Admitting Provider Emergency Medicine; Emergency Provider Emergency Medicine; PCP Internal Medicine Adolescent Medicine; Visit Provider Internal Medicine Adolescent Medicine
DX: A41.9 Sepsis, unspecified organism (principal); J18.9 Pneumonia, unspecified organism; N39.0 Urinary tract infection, site not specified; N17.9 Acute kidney failure, unspecified; E87.0 Hyperosmolality and hypernatremia; K92.2 Gastrointestinal hemorrhage, unspecified; Z20.822 Contact with and (suspected) exposure to COVID-19; Z51.5 Encounter for palliative care; Z66 Do not resuscitate; N18.9 Chronic kidney disease, unspecified; D63.1 Anemia in chronic kidney disease; Y95 Nosocomial condition; E83.52 Hypercalcemia; E78.5 Hyperlipidemia, unspecified; I10 Essential (primary) hypertension; M19.90 Unspecified osteoarthritis, unspecified site; E03.9 Hypothyroidism, unspecified; Z87.891 Personal history of nicotine dependence; R91.8 Other nonspecific abnormal finding of lung field
CPT/HCPCS: 36415; 70450; 71045; 74176; 80048; 80053; 81001; 83605; 83970; 85025; 87040; 93005; 96365; 96367; 99285; J1956; U0003